=== PATIENT | male | born 1985 | race Caucasian/White ===

== ENCOUNTER 2024-09-04 18:55 | Emergency (ER) | payer BC, OTHER | END 2024-09-04 20:46 | disposition home or self-care (01) | LOC: JP.ED 18:55 | DX: S20.212A Contusion of left front wall of thorax, initial encounter (principal); Z79.82 Long term (current) use of aspirin; Z79.4 Long term (current) use of insulin; Z79.84 Long term (current) use of oral hypoglycemic drugs; Z79.899 Other long term (current) drug therapy; W22.8XXA Striking against or struck by other objects, initial encounter | CPT/HCPCS: 71250; 99283 ==